=== PATIENT | female | born 2000 | race Asian ===

== ENCOUNTER 2018-09-17 00:20 | Emergency (ER) | payer OTHER, SELFPAY ==
[2018-09-17 00:21] VITALS: BP 121/84; PULSE 89; RESP 16; TEMP 37.1; O2SAT 99; BMI 21.7
--- NOTE | 2018-09-17 00:46 | EKG12_ITS ---
Test Reason : Blood Pressure : / mmHG Vent. Rate : 107 BPM Atrial Rate : 107 BPM P-R Int : 188 ms QRS Dur : 084 ms QT Int : 340 ms P-R-T Axes : 071 067 027 degrees QTc Int : 453 ms Sinus tachycardia Possible Left atrial enlargement Septal infarct , age undetermined Abnormal ECG Confirmed by MARSHALL ENGEL, KEN ([id number]), editor school photograph CHE HAAS ([id number]) on 09/18/2018 5:14:30 PM Referred By: WILFRID Confirmed By:KEN OLIVARES MD
[2018-09-17] MEDS: predniSONE 20 MG Tablet 40 MG PO (00:49)
--- NOTE | 2018-09-17 01:19 | ED.VISSUMM ---
- ER Visit Summary Date of Service: 09/17/18 Chief Complaint: Rash and shortness of breath History of Present Illness: The patient is a 18 F presenting for evaluation secondary to rash and shortness of breath. Patient reports that for her [place] vacation she recently was home in [place] visiting family. Patient reports that 4 days ago while she was at home she started to develop intermittent hives that were associated with shortness of breath. Patient went to a physician in [facility] who placed her on 3 different medications, a antihistamine, and a immune modulator. It seems like these medicines were helping but she was still getting the rash intermittently over the course of the last 4 days. Patient reports that upon return home at 8 PM today she had resurgence of the rash. Associated with a tightness feeling in her chest and shortness of breath. She denies any presence of fevers. She denies any hemoptysis. She denies any history of DVT or PE. Review of systems otherwise negative. Physical Examination: Vital signs are within normal limits, patient is afebrile. General: Patient is well-nourished well-developed and in no acute distress. Head: Normocephalic, atraumatic Eyes: Pupils equal round and reactive bilaterally, extra occular motion intact bialterally ENT: Moist mucous membranes Neck: Supple, no lymphadenopathy, no JVD, no meningismus CVS: Heart regular rate and rhythm, no murmurs, rubs or gallops, radial pulses 2+ bilaterally Resp: Respirations nondistressed, lung sounds clear bilaterally Abdomen: Soft, nontender, nondistended, no palpable masses, normal bowel sounds Back: Nontender Extremities: Nontender, atraumatic, active full range of motion, no peripheral edema Skin: warm, urticaria noted on the patient's left abdomen no petechia Neuro: Alert and oriented x 4, CN 2-12 intact, no lateralizing neurological defecits Psyc: Normal affect Test Results: EKG demonstrates sinus rhythm of [address] segments normal T waves. No evidence of right ventricular strain. No evidence of S1, q 3, T3 morphology Emergency Department Course and Treatment: Patient presented secondary to a rash and shortness of breath. I did consider the possibility of pulmonary embolism in this patient's, but it seems like this shortness of breath is very temporal area associated with an allergic reaction I do not believe that workup with d-dimer and/or CT angiogram would be fruitful. An EKG was performed which showed no right ventricular strain or changes concerning for PE. Patient was given dose of prednisone in the emergency department. She has no evidence of airway compromise. Given the fact that the patient has been in a different hemisphere is really tough to pin down what exactly is causing this but I believe that a prednisone burst will help. Patient will follow up with primary care. Disposition: Discharge Impression: 1. Allergic reaction This note was generated with [employer] dictation software. It may contain incorrect words, spelling, and punctuation that were not noted in review of the chart prior to signing ED Disposition - Plan for ED Patient: Disposition: Home or Assisted Living Chief Complaint: Shortness of Breath Diagnosis: Allergic reaction Instructions: ED Allergic Reaction General Other Prescriptions: Prednisone [Deltasone] 40 mg PO DAILY #8 tab Referrals: Baron Chi MD [Primary Care Provider] - 3-5 Days if not improving
--- NOTE | 2018-09-17 01:23 | ED.DCSUM_ITS ---
- ER Visit Summary Date of Service: 09/17/18 Chief Complaint: Rash and shortness of breath History of Present Illness: The patient is a 18 F presenting for evaluation secondary to rash and shortness of breath. Patient reports that for her [place] vacation she recently was home in [place] visiting family. Patient reports that 4 days ago while she was at home she started to develop intermittent hives that were associated with shortness of breath. Patient went to a physician in [facility] who placed her on 3 different medications, a antihistamine, and a immune modulator. It seems like these medicines were helping but she was still getting the rash intermittently over the course of the last 4 days. Patient reports that upon return home at 8 PM today she had resurgence of the rash. Associated with a tightness feeling in her chest and shortness of breath. She denies any presence of fevers. She denies any hemoptysis. She denies any history of DVT or PE. Review of systems otherwise negative. Physical Examination: Vital signs are within normal limits, patient is afebrile. General: Patient is well-nourished well-developed and in no acute distress. Head: Normocephalic, atraumatic Eyes: Pupils equal round and reactive bilaterally, extra occular motion intact bialterally ENT: Moist mucous membranes Neck: Supple, no lymphadenopathy, no JVD, no meningismus CVS: Heart regular rate and rhythm, no murmurs, rubs or gallops, radial pulses 2+ bilaterally Resp: Respirations nondistressed, lung sounds clear bilaterally Abdomen: Soft, nontender, nondistended, no palpable masses, normal bowel sounds Back: Nontender Extremities: Nontender, atraumatic, active full range of motion, no peripheral edema Skin: warm, urticaria noted on the patient's left abdomen no petechia Neuro: Alert and oriented x 4, CN 2-12 intact, no lateralizing neurological defecits Psyc: Normal affect Test Results: EKG demonstrates sinus rhythm of [address] segments normal T waves. No evidence of right ventricular strain. No evidence of S1, q 3, T3 morphology Emergency Department Course and Treatment: Patient presented secondary to a rash and shortness of breath. I did consider the possibility of pulmonary embolism in this patient's, but it seems like this shortness of breath is very temporal area associated with an allergic reaction I do not believe that workup with d- dimer and/or CT angiogram would be fruitful. An EKG was performed which showed no right ventricular strain or changes concerning for PE. Patient was given dose of prednisone in the emergency department. She has no evidence of airway compromise. Given the fact that the patient has been in a different hemisphere is really tough to pin down what exactly is causing this but I believe that a prednisone burst will help. Patient will follow up with primary care. Disposition: Discharge Impression: 1. Allergic reaction This note was generated with [employer] dictation software. It may contain incorrect words, spelling, and punctuation that were not noted in review of the chart prior to signing ED Disposition - Plan for ED Patient: Disposition: Home or Assisted Living Chief Complaint: Shortness of Breath Diagnosis: Allergic reaction Instructions: ED Allergic Reaction General Other Prescriptions: Prednisone [Deltasone] 40 mg PO DAILY #8 tab Referrals: Baron Chi MD [Primary Care Provider] - 3-5 Days if not improving
[2018-09-17 01:28] VITALS: BP 123/60; PULSE 80; RESP 16; O2SAT 98
== END 2018-09-17 01:35 | disposition home or self-care (01) ==
PROVIDERS: Emergency Provider Emergency Medicine; Family Provider Pediatrics; PCP Pediatrics
DX: T78.40XA Allergy, unspecified, initial encounter (principal); R21 Rash and other nonspecific skin eruption; R06.02 Shortness of breath
CPT/HCPCS: 93005; 99284